=== PATIENT | male | born 1960 | race Hispanic/Latino ===

== ENCOUNTER 2017-10-07 15:13 | Inpatient (IN) | payer BC, OTHER ==
[2017-10-07] MEDS ORDERED: ASPIRIN PO ONE (15:36)
[2017-10-07 15:51] LABS: Basophils % (Auto) 0.4 % (0.0-1.8); Eosinophils % (Auto) 0.5 % (0.0-4.3); Hematocrit 49.4 % (35.5-45.6); Hemoglobin 16.5 gm/dl (11.8-15.2); Lymphocytes # (Auto) 0.6 K/mm3 (1.2-5.4); Lymphocytes % (Auto) 7.4 % (13.4-35.0); Mean Corpuscular HGB Conc 34 % (32-34); Mean Corpuscular Hemoglobin 29 pg (28-32); Mean Corpuscular Volume 87 fl (84-94); Monocytes # (Auto) 0.5 K/mm3 (0.0-0.8); Monocytes % (Auto) 5.6 % (0.0-7.3); Platelet Count 186 K/mm3 (140-440); Red Blood Count 5.67 M/mm3 (3.65-5.03)
[2017-10-07 16:02] LABS: INR 0.93 (0.87-1.13)
[2017-10-07 16:03] LABS: Partial Thromboplastin Time 29.4 Sec. (24.2-36.6)
[2017-10-07 16:05] LABS: BUN/Creatinine Ratio 15; Blood Urea Nitrogen 16 mg/dL (9-20); Calcium 9.2 mg/dL (8.4-10.2); Hemolysis Index 7
--- NOTE | 2017-10-07 19:38 | Emergency Department Report ---
ED Chest Pain HPI - General Chief Complaint: Chest Pain Stated Complaint: CHEST PAIN Time Seen by Provider: 10/07/17 19:18 Source: patient Mode of arrival: Ambulatory Limitations: No Limitations - History of Present Illness Initial Comments: 56-year-old male with a past medical history CAD with stenting 2, now rheumatic mitral valve disorder, hyperlipidemia, and hypertension presents to the hospital with complaints since the onset of chest pain while working this morning. 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 Pain is rated 7/10 in intensity, lasted for several hours before resolving. Patient was seen by his senior economist Dr. Way at [facility] and was sent to the cardiac evaluation. Patient has been compliant with his medications. - Related Data Home Medications Medication Instructions Recorded Confirmed Last Taken Aspirin EC [Aspirin Enteric Coated 81 mg PO DAILY 10/16/14 10/16/14 10/15/14 TAB] Atorvastatin [Lipitor] 20 mg PO DAILY 10/16/14 10/16/14 10/15/14 Cholecalciferol Vit D3 [Vitamin D3] 1 tab PO DAILY 10/16/14 10/16/14 10/15/14 Clopidogrel Bisulfate [Plavix] 75 mg PO DAILY 10/16/14 10/16/14 10/15/14 Metoprolol [Lopressor TAB] 25 mg PO BID 10/16/14 10/16/14 10/15/14 [place]-3 Fatty Acids/Fish Oil [Fish 1 tab PO DAILY 10/16/14 10/16/14 10/15/14 Oil] Allergies Allergy/AdvReac Type Severity Reaction Status Date / Time Sulfa (Sulfonamide Allergy Severe DIFFICULTY Verified 10/07/17 15:32 Antibiotics) IN BREATHING Heart Score - HEART Score History: Moderately suspicious EKG: Normal Age: 45-65 Risk factors: > 3 risk factors or hx of atherosclerotic disease Troponin: < normal limit HEART Score: 4 ED Review of Systems ROS: Stated complaint: CHEST PAIN Other details as noted in HPI Comment: All other systems reviewed and negative Other: Constitutional: No fevers chills Eyes: No eye pain visual changes ENT: No ear pain or throat pain Neck: Denies pain Respiratory: Denies cough wheezing Cardiovascular: Denies palpitations, syncope GI: Denies abdominal pain : Denies dysuria Musculoskeletal: Denies back pain Skin: Denies rash, lesions, erythema Neurologic: Denies headache, numbness, weakness Psychiatric: Denies suicidal ideation, hallucinations ED Past Medical Hx - Past Medical History Hx Hypertension: Yes (2012) - Social History Smoking Status: Never Smoker Substance Use Type: None - Medications Home Medications: Home Medications Medication Instructions Recorded Confirmed Last Taken Type Aspirin EC [Aspirin Enteric Coated 81 mg PO DAILY 10/16/14 10/16/14 10/15/14 History TAB] Atorvastatin [Lipitor] 20 mg PO DAILY 10/16/14 10/16/14 10/15/14 History Cholecalciferol Vit D3 [Vitamin D3] 1 tab PO DAILY 10/16/14 10/16/14 10/15/14 History Clopidogrel Bisulfate [Plavix] 75 mg PO DAILY 10/16/14 10/16/14 10/15/14 History Metoprolol [Lopressor TAB] 25 mg PO BID 10/16/14 10/16/14 10/15/14 History [place]-3 Fatty Acids/Fish Oil [Fish 1 tab PO DAILY 10/16/14 10/16/14 10/15/14 History Oil] ED Physical Exam - General Limitations: No Limitations - Other Other exam information: General: No limitations, patient is alert in no acute distress Head exam: Atraumatic, normocephalic Eyes exam: Normal appearance ENT: Moist mucous membrane, normal oropharynx Neck exam: Normal inspection, full range of motion, no meningismus nontender Respiratory exam: Clear to auscultation bilateral, no wheezes, rales, crackles Cardiovascular: Normal rate and rhythm, normal heart sounds, chest wall nontender Abdomen: Soft, nondistended, and nontender, with normal bowel sounds, no rebound, or guarding Extremity: Full range of motion normal inspection no deformity, no calf tenderness or edema Back: Normal Inspection, full range of motion, no tenderness Neurologic: Alert, oriented x3, cranial nerves intact, no motor or sensory deficit Psychiatric: normal affect, normal mood Skin: Warm, dry, intact ED Course Vital Signs 10/07/17 15:33 Temperature 99 F Pulse Rate 95 H Respiratory 20 Rate Blood Pressure 130/89 O2 Sat by Pulse 96 Oximetry - Reevaluation(s) Reevaluation #1: 10/07/17 19:58 Pain free in the ED - Consultations Consultation #1: 10/07/17 19:45 Case d/w Dr Tobar GAYATHRI score - Gayathri Score Age > 65: (0) No Aspirin use within the Past 7 Days: (1) Yes 3 or more CAD Risk Factors: (1) Yes 2 or more Angina events in past 24 hrs: (1) Yes Known CAD with more than 50% Stenosis: (1) Yes Elevated Cardiac Markers: (0) No ST Deviation Greater than 0.5mm: (0) No GAYATHRI Score: 4 ED Medical Decision Making - Lab Data Result diagrams: 10/07/17 15:40 10/07/17 15:40 Lab Results 10/07/17 10/07/17 10/07/17 Range/Units 15:40 15:40 15:40 WBC 8.3 (4.5-11.0) K/mm3 RBC 5.67 H (3.65-5.03) M/mm3 Hgb 16.5 H (11.8-15.2) gm/dl Hct 49.4 H (35.5-45.6) % MCV 87 (84-94) fl MCH 29 (28-32) pg MCHC 34 (32-34) % RDW 14.0 (13.2-15.2) % Plt Count 186 (140-440) K/mm3 Lymph % (Auto) 7.4 L (13.4-35.0) % Fisher % (Auto) 5.6 (0.0-7.3) % Eos % (Auto) 0.5 (0.0-4.3) % Baso % (Auto) 0.4 (0.0-1.8) % Lymph # 0.6 L (1.2-5.4) K/mm3 Fisher # 0.5 (0.0-0.8) K/mm3 Eos # 0.0 (0.0-0.4) K/mm3 Baso # 0.0 (0.0-0.1) K/mm3 Seg Neutrophils % 86.1 H (40.0-70.0) % Seg Neutrophils # 7.1 (1.8-7.7) K/mm3 PT 12.9 (12.2-14.9) Sec. INR 0.93 (0.87-1.13) APTT 29.4 (24.2-36.6) Sec. Sodium 139 (137-145) mmol/L Potassium 4.8 (3.6-5.0) mmol/L Chloride 99.9 (98-107) mmol/L Carbon Dioxide 26 (22-30) mmol/L Anion Gap 18 mmol/L BUN 16 (9-20) mg/dL Creatinine 1.1 (0.8-1.5) mg/dL Estimated GFR > 60 ml/min BUN/Creatinine Ratio 15 % Glucose 118 H (75-100) mg/dL Calcium 9.2 (8.4-10.2) mg/dL Troponin T < 0.010 (0.00-0.029) ng/mL 10/07/17 Range/Units 18:08 WBC (4.5-11.0) K/mm3 RBC (3.65-5.03) M/mm3 Hgb (11.8-15.2) gm/dl Hct (35.5-45.6) % MCV (84-94) fl MCH (28-32) pg MCHC (32-34) % RDW (13.2-15.2) % Plt Count (140-440) K/mm3 Lymph % (Auto) (13.4-35.0) % Fisher % (Auto) (0.0-7.3) % Eos % (Auto) (0.0-4.3) % Baso % (Auto) (0.0-1.8) % Lymph # (1.2-5.4) K/mm3 Fisher # (0.0-0.8) K/mm3 Eos # (0.0-0.4) K/mm3 Baso # (0.0-0.1) K/mm3 Seg Neutrophils % (40.0-70.0) % Seg Neutrophils # (1.8-7.7) K/mm3 PT (12.2-14.9) Sec. INR (0.87-1.13) APTT (24.2-36.6) Sec. Sodium (137-145) mmol/L Potassium (3.6-5.0) mmol/L Chloride (98-107) mmol/L Carbon Dioxide (22-30) mmol/L Anion Gap mmol/L BUN (9-20) mg/dL Creatinine (0.8-1.5) mg/dL Estimated GFR ml/min BUN/Creatinine Ratio % Glucose (75-100) mg/dL Calcium (8.4-10.2) mg/dL Troponin T < 0.010 (0.00-0.029) ng/mL - EKG Data -: EKG Interpreted by Me EKG shows normal: sinus rhythm, axis (81), QRS complexes (87), ST-T waves (no stemi/t) Rate: normal (87) - EKG Data When compared to previous EKG there are: previous EKG unavailable 10/07/17 19:58 No change compared to EKG obtained in the senior economist office - Medical Decision Making Plan to admit patient to hospital for a cardiac evaluation given his epigastric cardiac - Differential Diagnosis VT, unstable angina, atypical chest pain Critical Care Time: No Critical care attestation.: If time is entered above; I have spent that time in minutes in the direct care of this critically ill patient, excluding procedure time. ED Disposition Clinical Impression: Chest pain, Hx of heart artery stent Disposition: OP ADMIT IP TO THIS HOSP Is pt being admited?: Yes Condition: Stable Time of Disposition: 19:46 (Dr Leblanc/hosp)
[2017-10-07] MEDS ORDERED: NORCO 5/325 PO ONE (20:23)
[2017-10-07] MEDS ORDERED: SODIUM CHLORIDE FLUSH SYRINGE 10 ML IV PRN (22:37)
[2017-10-07] MEDS ORDERED: MORPHINE IV PRN (22:37)
[2017-10-07] MEDS ORDERED: NITROSTAT SL PRN (22:37)
[2017-10-07 23:23] LABS: BUN/Creatinine Ratio 14; Blood Urea Nitrogen 14 mg/dL (9-20); Calcium 8.6 mg/dL (8.4-10.2); Hemolysis Index 8
[2017-10-08] MEDS ORDERED: ZOFRAN IV PRN (02:45)
[2017-10-08] MEDS ORDERED: TYLENOL PO PRN (02:46)
--- NOTE | 2017-10-08 04:07 | History and Physical Report ---
CHIEF COMPLAINT: Chest pain. HISTORY OF PRESENT ILLNESS: The patient is a 56-year-old male with coronary artery disease presenting with chest pain that started on 10/07/2017, while the patient was moving some rocks. The patient states he started having sharp chest pain that occurred also presnted as tightness and was associated with shortness of breath, lightheadedness, nausea, and multiple episodes of vomiting. The patient rated pain as a 7/10. He stated the pain lasted several hours before resolving. The patient denies history of fever, denied history of cough and presented to the Emergency Room. PAST MEDICAL HISTORY: Pertinent for hypertension. Also, the patient has past medical history of hyperlipidemia, coronary artery disease, rheumatic mitral valve disorder. PAST SURGICAL HISTORY: Pertinent for stent placement. FAMILY HISTORY: Pertinent for coronary artery disease. SOCIAL HISTORY: The patient lives with family. Does not smoke, does not drink alcohol and does not use illicit drugs. MEDICATIONS: The patient is on aspirin 81 mg daily, Lipitor 20 mg daily, vitamin D3 one tablet by mouth daily, Plavix 75 mg by mouth daily, Lopressor 25 mg by mouth twice daily, omega 3 fatty acid 1 tablet by mouth daily. ALLERGIES: THE PATIENT IS ALLERGIC TO SULFA DRUGS. REVIEW OF SYSTEMS: CONSTITUTIONAL: There is no fever, no chills. Diaphoresis present. HEENT: There is no headache or sore throat. CARDIOVASCULAR: Chest pain present. No orthopnea. RESPIRATORY: Shortness of breath present. No cough. GASTROINTESTINAL: Nausea and vomiting present. No abdominal pain, diarrhea or constipation. NEUROLOGIC: Lightheadedness present. No altered mental status. MUSCULOSKELETAL: There is no joint pain or swelling. DERMATOLOGICAL: There is no skin rash or itching. GENITOURINARY: There is no dysuria, hematuria or flank pain. Rest of system review is normal. PHYSICAL EXAMINATION: GENERAL: At the time of exam, the patient was found to be alert, oriented x 3, not in acute distress. VITAL SIGNS: Shows normal temperature with pulse of 72, respirations 24, blood pressure 116/70, O2 sat of 95% on room air. HEENT: Showed pupils to be equal, round, reactive to light and accommodating. Extraocular motions are intact. NECK: Supple with no JVD or carotid bruit. CARDIOVASCULAR: Showed normal first and second heart sounds with no gallops or murmurs. RESPIRATORY: Show good air entry on both sides of the lungs with no abnormal breath sounds. GASTROINTESTINAL: Show abdomen to be full, soft, nontender with no organomegaly or rigidity. NEUROLOGIC: Shows no focal deficit. MUSCULOSKELETAL: Show no joint swelling or tenderness. DERMATOLOGICAL: Show no skin rash. GENITOURINARY: Showing no costovertebral angle tenderness. PERTINENT LABORATORY AND IMAGING STUDIES: The patient has CBC done with normal, elevated hemoglobin of 16.5, elevated hematocrit of 49.4 and normal MCV. Coagulation studies came back unremarkable. The patient's chemistry was unremarkable. First level of troponin was normal. IMAGING STUDIES: No imaging studies were reported on the patient. DIAGNOSIS: Chest pain. PLAN: The patient will be admitted to medical floor on telemetry for chest pain. The patient will be on nitro paste 1 inch to anterior chest wall t.i.d. and will be on sublingual nitroglycerin 0.4 mg every 5 minutes as needed for chest pain. The patient will be on aspirin 325 mg by mouth daily and will be on IV morphine 2 mg every 5 minutes as needed for chest pain. The patient will remain n.p.o. for Lexiscan stress in the morning. We will continue the Cardiology consult with Dr. Tobar put in by the Emergency Room doctor, Dr. Oglesby. The patient will be on oxygen by nasal cannula per chest pain protocol and will be on IV Zofran 4 mg every 6 hours as needed for nausea and vomiting and Tylenol 650 mg by mouth every 4 hours for fever and headache. The patient's home medications will be reconciled later on when he starts taking pills orally. JOB# [id number] OCN/NTS MTDD
[2017-10-08] MEDS: NITRO-BID 2% TP SCH ×2 (05:22→10:59)
[2017-10-08] MEDS ORDERED: LEXISCAN IV ONE ×2 (08:05→08:16)
[2017-10-08] MEDS ORDERED: ECOTRIN PO SCH (10:00)
--- NOTE | 2017-10-08 10:09 | Consultation ---
History of Present Illness Consult date: 10/08/17 Consult reason: chest pain History of present illness: 56 year old admitted with chest, back pain, nausea and vomiting. ECG is normal, Troponin negative x 4, MPI today showing no ischemia with a preserved LVEF. Non-smoker, non-diabetic, history of CAD s/p PCI to RCA with documented patent stents 09/2016, along with small vessel disease involving PLVB recommended for medical therapy. Past History Past Medical History: CAD, hypertension, hyperlipidemia Past Surgical History: PTCA Social history: no significant social history Family history: no significant family history Medications and Allergies Allergies Allergy/AdvReac Type Severity Reaction Status Date / Time Sulfa (Sulfonamide Allergy Severe DIFFICULTY Verified 10/07/17 15:32 Antibiotics) IN BREATHING Home Medications Medication Instructions Recorded Confirmed Last Taken Type Aspirin EC [Aspirin Enteric Coated 81 mg PO DAILY 10/16/14 10/07/17 10/07/17 History TAB] Atorvastatin [Lipitor] 80 mg PO DAILY 10/16/14 10/07/17 10/07/17 History Cholecalciferol Vit D3 [Vitamin D3] 1 tab PO DAILY 10/16/14 10/07/17 10/07/17 History Clopidogrel Bisulfate [Plavix] 75 mg PO DAILY 10/16/14 10/07/17 10/07/17 History Metoprolol [Lopressor TAB] 25 mg PO DAILY 10/16/14 10/07/17 10/07/17 History Ezetimibe [Zetia] 10 mg PO QDAY 10/07/17 10/07/17 10/07/17 History ISOSORBIDE MONOnitrate [Imdur ER] 30 mg PO DAILY 10/07/17 10/07/17 10/07/17 History Active Meds: Active Medications Acetaminophen (Tylenol) 650 mg PO Q4H PRN PRN Reason: For Pain/Fever/Headache Aspirin (Ecotrin) 325 mg PO QDAY SERA Morphine Sulfate (Morphine) 2 mg IV Q5MIN PRN PRN Reason: Chest Pain Nitroglycerin (Nitrostat) 0.4 mg SL Q5M PRN PRN Reason: Chest Pain Nitroglycerin (Nitro-Bid 2%) 1 inch TP TIDNTG [facility]; Protocol Last Admin: 10/08/17 05:22 Dose: Not Given Ondansetron HCl (Zofran) 4 mg IV Q6H PRN PRN Reason: Nausea And Vomiting Sodium Chloride (Sodium Chloride Flush Syringe 10 Ml) 10 ml IV PRN PRN PRN Reason: LINE FLUSH Review of Systems All systems: negative Physical Examination Vital Signs Temp Pulse Resp BP Pulse Ox 99 F 95 H 20 130/89 96 10/07/17 15:33 10/07/17 15:33 10/07/17 15:33 10/07/17 15:33 10/07/17 15:33 General appearance: no acute distress HEENT: Positive: PERRL Neck: Positive: neck supple Cardiac: Positive: Reg Rate and Rhythm Lungs: Positive: Normal Exam Results 10/07/17 15:40 10/07/17 22:48 Coagulation 10/07/17 Range/Units 15:40 PT 12.9 (12.2-14.9) Sec. INR 0.93 (0.87-1.13) APTT 29.4 (24.2-36.6) Sec. CBC 10/07/17 Range/Units 15:40 WBC 8.3 (4.5-11.0) K/mm3 RBC 5.67 H (3.65-5.03) M/mm3 Hgb 16.5 H (11.8-15.2) gm/dl Hct 49.4 H (35.5-45.6) % Plt Count 186 (140-440) K/mm3 Lymph # 0.6 L (1.2-5.4) K/mm3 [place] # 0.5 (0.0-0.8) K/mm3 Eos # 0.0 (0.0-0.4) K/mm3 Baso # 0.0 (0.0-0.1) K/mm3 Comprehensive Metabolic Panel 10/07/17 10/07/17 Range/Units 15:40 22:48 Sodium 139 136 L (137-145) mmol/L Potassium 4.8 3.4 L D (3.6-5.0) mmol/L Chloride 99.9 97.6 L (98-107) mmol/L Carbon Dioxide 26 23 (22-30) mmol/L BUN 16 14 (9-20) mg/dL Creatinine 1.1 1.0 (0.8-1.5) mg/dL Glucose 118 H 142 H (75-100) mg/dL Calcium 9.2 8.6 (8.4-10.2) mg/dL EKG interpretations - Telemetry EKG Rhythm: Sinus Rhythm Assessment and Plan Chest pain Low risk MPI Normal LVEF CAD s/p PCI to RCA Cath 09/2016 - patent RCA stents, small vessel disease involving PLVB recommended for medical therapy Systemic Hypertenison Hyperlipidemia Recommendations: May go home and follow-up with primary strip feeder as outpatient Continue Imdur, metoprolol, statins, asa and plavix
--- NOTE | 2017-10-08 10:43 | Treadmill Report ---
INDICATION: Chest pain. ORDERING PHYSICIAN: Armida Way MD. FINDINGS: There is no scintigraphic evidence of myocardial ischemia. The left ventricle is normal in size and systolic function. The left ventricular ejection fraction is measured at 58%. There is normal wall motion and wall thickening noted on gated imaging. CONCLUSION: There is no scintigraphic evidence of myocardial ischemia. The left ventricle is normal in size and systolic function. This is a low risk myocardial perfusion scan associated with 1-year cardiovascular event rate of less than 1%. JOB# [id number] MAKSIM/JOLENE
[2017-10-08 11:52] VITALS: BP 139/68
--- NOTE | 2017-10-08 16:13 | Discharge Summary ---
Providers - Providers Date of Admission: 10/07/17 19:46 Date of discharge: 10/08/17 Attending physician: AUDIE BONILLA 10/07/17 Consult to Cardiac Rehabilitation [CONS] Routine Reason For Exam: Phase I 10/07/17 19:47 Consult to Physician [CONS] Urgent Comment: Consulting Provider: DEX LANDAVERDE Physician Instructions: Reason For Exam: cp, hx of stent Primary care physician: INVENTORY CONTROLLER Hospitalization Reason for admission: chest pain Condition: Stable Pertinent studies: Exercise stress test; negative for reversible ischemia, left ventricular ejection fraction 58% Hospital course: Very pleasant 56-year-old male patient with significant past medical history of hypertension dyslipidemia coronary artery disease status post PCI was admitted through emergency room with chest pain Patient was managed symptomatically subsequently underwent stress test which was negative for reversible ischemia and preserved left ventricular function,Patient was also seen and evaluated by stock manager Patient's symptoms significantly improved, today's comfortably in bed denies any chest pain or shortness of breath Vital signs reviewed, stable, [id number] evaluation physical examination done by me prior to discharge is unremarkable Clear by cardiology and advised to follow his private stock manager in 1-2 weeks or as needed Patient is hemodynamically and clinically stable at discharge Discharge diagnosis: --Chest pain; probably secondary to gastroesophageal reflux disease, --GERD --Coronary artery disease status post PCI --Hypertension --Dyslipidemia --Obesity; BMI 31.2 Disposition: TN-01 TO HOME OR SELFCARE Time spent for discharge: 31 min Core Measure Documentation - Palliative Care Palliative Care/ Comfort Measures: Not Applicable - Core Measures Any of the following diagnoses?: none Exam - Constitutional Vitals: Temp Pulse Resp BP Pulse Ox 98.3 F 70 18 139/68 96 10/08/17 04:38 10/08/17 09:00 10/08/17 04:38 10/08/17 09:00 10/08/17 04:38 General appearance: Present: no acute distress, well-nourished - EENT Eyes: Present: PERRL, EOM intact - Neck Neck: Present: supple, normal ROM - Respiratory Respiratory effort: normal Respiratory: negative: rales, rhonchi, wheezing - Cardiovascular Rhythm: regular Heart Sounds: Present: S1 & S2 - Extremities Extremities: no ischemia, No edema - Abdominal General gastrointestinal: Present: soft, non-tender, non-distended, normal bowel sounds - Integumentary Integumentary: Present: clear, warm - Musculoskeletal Musculoskeletal: strength equal bilaterally - Psychiatric Psychiatric: appropriate mood/affect, cooperative - Neurologic Neurologic: CNII-XII intact, moves all extremities Plan Activity: no restrictions Diet: other (cardiac diet) Additional Instructions: Follow private stock manager in 1-2 weeks. Continue all your home medications as before. If you have chest pain or shortness of breath, contact M.D. or go to emergency room
== END 2017-10-08 17:37 | disposition home or self-care (01) | DRG 392 ==
LOC: ED 15:13 → 4A 19:46
PROVIDERS: ADMIT Internal Medicine; ATTEND Internal Medicine
DX: K21.9 Gastro-esophageal reflux disease without esophagitis (principal); I25.10 Atherosclerotic heart disease of native coronary artery without angina pectoris; I05.1 Rheumatic mitral insufficiency; E66.9 Obesity, unspecified; I10 Essential (primary) hypertension; E78.5 Hyperlipidemia, unspecified; Z82.49 Family history of ischemic heart disease and other diseases of the circulatory system; Z88.2 Allergy status to sulfonamides; Z95.5 Presence of coronary angioplasty implant and graft; Z79.82 Long term (current) use of aspirin; Z79.899 Other long term (current) drug therapy; Z68.31 Body mass index [BMI] 31.0-31.9, adult
CPT/HCPCS: 36415; 78452; 80048; 84484; 85025; 85610; 85730; 93005; 93010; 93017; A9502; J2785